=== PATIENT | female | born 2000 | race American Indian/Alaskan Native ===

== ENCOUNTER 2019-08-07 08:41 | Emergency (ER) | payer SELFPAY ==
[2019-08-07] MEDS ORDERED: ACETAMINOPHEN 325 MG TAB PO ONE (11:06)
--- NOTE | 2019-08-07 11:07 | Emergency Department Report ---
HPI - General Chief Complaint: Vaginal Bleeding Time Seen by Provider: 08/07/19 10:35 - HPI HPI: 18-year-old -Turkish female presents to the emergency department with complaint of some lower abdominal and pelvic cramping with radiation to the back, as well as some mild vaginal bleeding, that started this morning. The patient is currently about 4 weeks . This was confirmed with a home test followed by a blood test at the [facility]. She follows with Dr. Fagan at [facility]. She has not taken anything for symptoms prior to presentation. With this she is G2, P1. ED Past Medical Hx - Past Medical History Previous Medical History?: No - Surgical History Past Surgical History?: Yes Additional Surgical History: Gangleon cyst. - Social History Smoking Status: Never Smoker Substance Use Type: None - Medications Home Medications: Home Medications Medication Instructions Recorded Confirmed Last Taken Type Nitrofurantoin [place]/M-Cryst 100 mg PO Q12HR #14 capsule 08/07/19 Unknown Rx [Macrobid CAP] ED Review of Systems ROS: Stated complaint: 4 WKS PREG, PINK/BROWN BLEEDING Other details as noted in HPI Comment: All other systems reviewed and negative Constitutional: denies: chills, fever Respiratory: denies: cough, shortness of breath Cardiovascular: denies: chest pain, palpitations Gastrointestinal: abdominal pain. denies: vomiting Genitourinary: other (Pelvic cramping, vaginal bleeding). denies: dysuria Musculoskeletal: back pain. denies: arthralgia Skin: denies: rash, lesions Neurological: denies: headache, weakness Physical Exam - Physical Exam Vital Signs: Vital Signs 08/07/19 08/07/19 08:53 10:45 Temperature 97.7 F Pulse Rate 68 Respiratory 16 16 Rate Blood Pressure 110/62 O2 Sat by Pulse 100 100 Oximetry Physical Exam: GENERAL: The patient is well-developed well-nourished. HENT: Normocephalic. Atraumatic. Patient has moist mucous membranes. EYES: Extraocular motions are intact. NECK: Supple. Trachea is midline. CHEST/LUNGS: Clear to auscultation. There is no respiratory distress noted. HEART/CARDIOVASCULAR: Regular. There is no tachycardia. ABDOMEN: Abdomen is soft. Unable to reproduce abdominal or pelvic cramping to palpation. No guarding. Patient has normal bowel sounds. There is no abdominal distention. SKIN: Skin is warm and dry. NEURO: The patient is awake, alert, and oriented. The patient is cooperative. The patient has no focal neurologic deficits. Normal speech. MUSCULOSKELETAL: There is no tenderness or deformity. There is no evidence of acute injury. ED Course Vital Signs 08/07/19 08/07/19 08:53 10:45 Temperature 97.7 F Pulse Rate 68 Respiratory 16 16 Rate Blood Pressure 110/62 O2 Sat by Pulse 100 100 Oximetry ED Medical Decision Making - Lab Data Result diagrams: 08/07/19 11:03 08/07/19 11:03 - Radiology Data Radiology results: report reviewed ULTRASOUND OBSTETRIC INDICATION: 4 weeks with vaginal bleeding. TECHNIQUE: Transabdominal and Transvaginal. COMPARISON: None available. FINDINGS: GESTATIONAL SAC: None seen. YOLK SAC: None seen. EMBRYO/FETUS: None seen. ADNEXA: No significant abnormality. UTERUS: No significant abnormality. FREE FLUID: None. ADDITIONAL FINDINGS: None. IMPRESSION: No sonographic evidence of an intrauterine or ectopic . - Medical Decision Making This patient presents to the emergency department with some mild vaginal bleeding and some pelvic cramping while . The patient previously had a positive home test that was confirmed at her [facility]. Patient's labs show a mild urinary tract infection. Her beta hCG is less than 2 which is essentially 0 here. An ultrasound was done that does not show any signs of any intrauterine or ectopic . All this together appears to show that the patient had a spontaneous miscarriage, but most likely was not from the bleeding that started this morning as the hormone level is 0. She will be placed on Macrobid for the urinary tract infection. She has good outpatient follow-up with [facility]. She will return to the emergency department with any worsening of her symptoms or any acute distress. - Differential Diagnosis , threatened miscarriage, spontaneous miscarriage, fibroids Critical Care Time: No Critical care attestation.: If time is entered above; I have spent that time in minutes in the direct care of this critically ill patient, excluding procedure time. ED Disposition Clinical Impression: Spontaneous miscarriage UTI (urinary tract infection) Qualifiers: Urinary tract infection type: acute cystitis Hematuria presence: with hematuria Qualified Code(s): N30.01 - Acute cystitis with hematuria Disposition: - TO HOME OR SELFCARE Is pt being admited?: No Condition: Stable Instructions: Spontaneous Miscarriage (ED), Urinary Tract Infection in Women (ED) Additional Instructions: Please follow-up with your [facility] in the next few days. Return to the emergency department with any worsening of your symptoms or with any acute distress. Prescriptions: Nitrofurantoin [place]/M-Cryst [Macrobid CAP] 100 mg PO Q12HR #14 capsule Referrals: OBGYN, Your [Other] - 2-3 Days Forms: Work/School Release Form(ED) Time of Disposition: 12:18
[2019-08-07 11:32] VITALS: BP 110/66
[2019-08-07 11:35] LABS: Basophils % (Auto) 0.3 % (0.0-1.8); Eosinophils # (Auto) 0.3 K/mm3 (0.0-0.4); Eosinophils % (Auto) 4.6 % (0.0-4.3); Hematocrit 38.5 % (30.3-42.9); Hemoglobin 12.4 gm/dl (10.1-14.3); Lymphocytes # (Auto) 2.5 K/mm3 (1.2-5.4); Lymphocytes % (Auto) 36.1 % (13.4-35.0); Mean Corpuscular HGB Conc 32 % (30-34); Mean Corpuscular Volume 84 fl (79-97); Monocytes # (Auto) 0.4 K/mm3 (0.0-0.8); Monocytes % (Auto) 5.9 % (0.0-7.3); Platelet Count 237 K/mm3 (140-440); Red Blood Count 4.57 M/mm3 (3.65-5.03); Red Cell Distribution Width 13.9 % (13.2-15.2)
[2019-08-07 11:42] LABS: Bacteria,Urine 1+ /HPF (Negative); Bilirubin,Urine NEG (Negative); Blood,Urine LG (Negative); Color,Urine Yellow (Yellow); Mucus,Urine 1+ /HPF; Urobilinogen,Urine < 2.0 mg/dL (<2.0)
[2019-08-07 11:43] LABS: RBC,Urine > 182.0 /HPF (0.0-6.0)
--- NOTE | 2019-08-07 12:03 | Ultrasound Report ---
ULTRASOUND OBSTETRIC INDICATION: 4 weeks with vaginal bleeding. TECHNIQUE: Transabdominal and Transvaginal. COMPARISON: None available. FINDINGS: GESTATIONAL SAC: None seen. YOLK SAC: None seen. EMBRYO/FETUS: None seen. ADNEXA: No significant abnormality. UTERUS: No significant abnormality. FREE FLUID: None. ADDITIONAL FINDINGS: None. IMPRESSION: No sonographic evidence of an intrauterine or ectopic . Signer Name: Jak Bishop MD Signed: 08/07/2019 11:58 AM Workstation Name: [id number]
[2019-08-07 12:11] LABS: BUN/Creatinine Ratio 9; Blood Urea Nitrogen 7 mg/dL (7-17); Calcium 9.3 mg/dL (8.4-10.2); Hemolysis Index 9
== END 2019-08-07 12:57 | disposition home or self-care (01) ==
LOC: ED 08:41
DX: O03.9 Complete or unspecified spontaneous abortion without complication (principal); O23.41 Unspecified infection of urinary tract in pregnancy, first trimester; Z3A.01 Less than 8 weeks gestation of pregnancy; Z79.899 Other long term (current) drug therapy
CPT/HCPCS: 36415; 76801; 76817; 80048; 81001; 84702; 85025; 86900; 86901; 87086; 99284

== ENCOUNTER 2020-02-07 16:29 | Emergency (ER) | payer SELFPAY ==
[2020-02-07] MEDS ORDERED: HYDROcodone/ACETAMINOPHEN 5-325 MG TAB PO ONE (17:15)
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
[2020-02-07 20:15] VITALS: BP 99/69
== END 2020-02-07 20:10 | disposition home or self-care (01) ==
LOC: ED 16:29
DX: S16.1XXA Strain of muscle, fascia and tendon at neck level, initial encounter (principal); S40.022A Contusion of left upper arm, initial encounter; J45.909 Unspecified asthma, uncomplicated; V89.2XXA Person injured in unspecified motor-vehicle accident, traffic, initial encounter; Y93.89 Activity, other specified; Y92.410 Unspecified street and highway as the place of occurrence of the external cause; Y99.8 Other external cause status
CPT/HCPCS: 36415; 72125; 84703